=== PATIENT | male | born 1965 | race Caucasian/White ===

== ENCOUNTER 2017-06-19 13:20 | Inpatient (IN) | payer SELFPAY ==
[~2017-06-19] VITALS: Ht 182.9 cm; Wt 136.9 kg
[~2017-06-19 13:20] MED LIST: DLD2 PO; GLYB5TAB8 PO; INSUINJ7 SC; LEVO-366 PO; MULT-506 PO; NVLGI SC; PRLSR20 PO; THIA100T11 PO; [UNRECOGNIZED DRUG - CODE] PO
--- NOTE | 2017-06-19 13:49 | EMERGENCY ROOM VISIT NOTE ---
History First contact with patient: 13:28 Chief Complaint: ILLNESS Stated Complaint: DIABETES ISSUES, ILLNESS History of Present Illness The patient is a 51 year old male who presents to the Emergency Room with complaints of diabetes problems. The patient was a recovering alcoholic that started binging about a week ago. He lost track of the days and believes he wasn 't taking his insulin. The patient also notes the following associated symptoms , blurry vision, upset stomach, diarrhea, neuropathy numbness,and a cough with some blood tinged sputum. This started a few days ago and is improving. His sister found him yesterday and had him take his insulin. The patient has taken some ibuprofen as relieving factors. He lost his insurance and is buying lantus from a friend. His last continous stretch of primary care was two years ago. Pt denies headache, fevers, chills, diaphoresis, visual changes, neck pain, chest pain, breathing difficulties, nausea, vomiting, abdominal pain, back pain , melena, hematochezia, urinary symptoms, weakness, lymphadenopathy, rash, or other complaints. Review of Systems See HPI for pertinent positives and negatives. A total of ten systems were reviewed and were otherwise negative. Past Medical/Surgical History Medical Problems: (1) Diabetes (2) Diverticulitis Surgical Problems: (1) S/P colon resection Social History Problems: (1) Alcohol abuse Social History Smoking Status: Never Smoker Marital Status: single Current/Historical Medications Scheduled Insulin Aspart (Novolog Flexpen), 1 DOSE SC UD Insulin Glargine (Lantus Solostar), 25 UNITS SC BID Physical Exam Vital Signs Date Time Temp Pulse Resp B/P (MAP) Pulse Ox O2 Delivery O2 Flow Rate FiO2 06/19/17 14:53 110 20 198/116 98 Room Air 06/19/17 14:25 94 Room Air 06/19/17 14:22 109 06/19/17 13:24 36.4 126 22 190/133 94 Room Air Physical Exam GENERAL: Awake, alert, anxious-appearing, in no distress HENT: Normocephalic, atraumatic. Oropharynx unremarkable. EYES: Normal conjunctiva. Sclera non-icteric. NECK: Supple. No nuchal rigidity. FROM. No masses. RESPIRATORY: Clear to auscultation. No wheezes. No rales. Normal respiratory effort. CARDIAC: Tachycardic rate. Normal rhythm. No murmurs. No rubs. Extremities warm and well perfused. Pulses equal. No JVD. GI: Soft, non-distended. No tenderness to palpation. No rebound or guarding. No masses. RECTAL: Deferred. MUSCULOSKELETAL: Atraumatic. Chest examination reveals no tenderness. The back is symmetrical on inspection without obvious abnormality. There is no CVA tenderness to palpation. No joint edema. LOWER EXTREMITIES: Calves are equal size bilaterally and non-tender. Trace edema. No discoloration. NEURO: Normal sensorium. No sensory or motor deficits noted. SKIN: No rash or jaundice noted. Medical Decision & Procedures ER Provider Diagnostic Interpretation: SINGLE VIEW CHEST CLINICAL HISTORY: Cough. FINDINGS: An AP, portable, upright chest radiograph is compared to study dated 03/17/2010. The examination is degraded by portable technique and apical lordotic positioning. The cardiomediastinal silhouette is unremarkable. The lungs and pleural spaces are clear. No pneumothorax is seen. The bony thorax is grossly intact. IMPRESSION: No active disease in the chest. Electronically signed by: Bruno Mendoza M.D. 06/19/2017 2:46 PM Dictated Date/Time: 06/19/2017 2:45 PM The status of this report is Signed. Draft = Not yet reviewed or approved by Radiologist. Signed = Reviewed and approved by Radiologist. Laboratory Results 06/19/17 14:25 Red Blood Count 5.04, Mean Corpuscular Volume 87.9, Mean Corpuscular Hemoglobin 30.8, Mean Corpuscular Hemoglobin Concent 35.0, Mean Platelet Volume 10.0, Neutrophils (%) (Auto) 65.9, Lymphocytes (%) (Auto) 20.3, Monocytes (%) (Auto) 13.0, Eosinophils (%) (Auto) 0.4, Basophils (%) (Auto) 0.3, Neutrophils # (Auto ) 4.80, Lymphocytes # (Auto) 1.48, Monocytes # (Auto) 0.95, Eosinophils # (Auto ) 0.03, Basophils # (Auto) 0.02 06/19/17 14:25 Test 06/19/17 14:25 06/19/17 15:08 White Blood Count 7.29 K/uL (4.8-10.8) Red Blood Count 5.04 M/uL (4.7-6.1) Hemoglobin 15.5 g/dL (14.0-18.0) Hematocrit 44.3 % (42-52) Mean Corpuscular Volume 87.9 fL (80-100) Mean Corpuscular Hemoglobin 30.8 pg (25-34) Mean Corpuscular Hemoglobin Concent 35.0 g/dl (32-36) Platelet Count 190 K/uL (130-400) Mean Platelet Volume 10.0 fL (7.4-10.4) Neutrophils (%) (Auto) 65.9 % Lymphocytes (%) (Auto) 20.3 % Monocytes (%) (Auto) 13.0 % Eosinophils (%) (Auto) 0.4 % Basophils (%) (Auto) 0.3 % Neutrophils # (Auto) 4.80 K/uL (1.4-6.5) Lymphocytes # (Auto) 1.48 K/uL (1.2-3.4) Monocytes # (Auto) 0.95 K/uL (0.11-0.59) Eosinophils # (Auto) 0.03 K/uL (0-0.5) Basophils # (Auto) 0.02 K/uL (0-0.2) RDW Standard Deviation 43.4 fL (36.4-46.3) RDW Coefficient of Variation 13.5 % (11.5-14.5) Immature Granulocyte % (Auto) 0.1 % Immature Granulocyte # (Auto) 0.01 K/uL (0.00-0.02) Prothrombin Time 10.9 SECONDS (9.0-12.0) Prothromb Time International Ratio 1.0 (0.9-1.1) Activated Partial Thromboplast Time 24.5 SECONDS (21.0-31.0) Partial Thromboplastin Ratio 0.9 Anion Gap 6.0 mmol/L (3-11) Est Creatinine Clear Calc Drug Dose 128.4 ml/min Estimated GFR () 105.5 Estimated GFR (Non- 91.0 BUN/Creatinine Ratio 6.5 (10-20) Calcium Level 9.9 mg/dl (8.5-10.1) Magnesium Level 1.4 mg/dl (1.8-2.4) Total Bilirubin 1.4 mg/dl (0.2-1) Direct Bilirubin 0.3 mg/dl (0-0.2) Aspartate Amino Transf (AST/SGOT) 50 U/L (15-37) Alanine Aminotransferase (ALT/SGPT) 63 U/L (12-78) Alkaline Phosphatase 86 U/L (45-117) Total Creatine Kinase 579 U/L (39-308) Creatine Kinase MB 3.2 ng/ml (0.5-3.6) Creatine Kinase MB Ratio 0.6 (0-3.0) Troponin I < 0.015 ng/ml (0-0.045) Total Protein 8.9 gm/dl (6.4-8.2) Albumin 4.2 gm/dl (3.4-5.0) Lipase 150 U/L (73-393) Thyroid Stimulating Hormone (TSH) 2.480 uIu/ml (0.300-4.500) Urine Color DK YELLOW Urine Appearance CLEAR (CLEAR) Urine pH 6.5 (4.5-7.5) Urine Specific [place] 1.029 (1.000-1.030) Urine Protein 3+ (NEG) Urine Glucose (UA) 3+ (NEG) Urine Ketones 1+ (NEG) Urine Occult Blood 2+ (NEG) Urine Nitrite NEG (NEG) Urine Bilirubin 1+ (NEG) Urine Urobilinogen NEG (NEG) Urine Leukocyte Esterase NEG (NEG) Urine WBC (Auto) 1-5 /hpf (0-5) Urine RBC (Auto) 5-10 /hpf (0-4) Urine Hyaline Casts (Auto) 1-5 /lpf (0-5) Urine Epithelial Cells (Auto) 5-10 /lpf (0-5) Urine Bacteria (Auto) NEG (NEG) Medications Administered Medications (Trade) Dose Ordered Sig/Katerine Route Start Time Stop Time Status Last Admin Dose Admin Insulin Human Regular (novoLIN-R U-100 PER UNIT) 4 units NOW STAT IV 06/19/17 15:58 06/19/17 15:59 DC 06/19/17 16:51 4 UNITS Magnesium Sulfate (Magnesium Sulfate 1gm / D5W) 2 gm NOW STAT IV 06/19/17 15:58 06/19/17 15:59 DC 06/19/17 16:48 2 GM ECG Per My Interpretation Indication: altered mental status Rate (beats per minute): 111 Rhythm: sinus tachycardia Findings: PVC, no acute ischemic change Medical Decision Triage Nursing notes reviewed. The patient's presentation and history were concerning for alcohol abuse and medication non-compliance. Etiologies such as metabolic, infection, hypo/hyperglycemia, electrolyte abnormalities, cardiac sources, intracerebral event, toxicologic, neurologic, as well as others were entertained. The patient was evaluated. He was very concerned about cost as he does not have insurance. He has not been following with his primary care. He has been buying his insulin from a neighbor. He has not been monitoring his blood sugars. The patient notes significant alcohol consumption has a history of alcohol abuse. He and I used shared decision making to initiate a workup. He was found to be moderately hyperglycemic on his chemistry panel without signs of DKA. He was found to have significant hypomagnesemia and mild elevation of his LFTs. IV magnesium was administered. ECG showed a sinus tachycardia. The patient's chest x-ray was benign as above. He was treated with IV insulin. He does not have primary care. He has severe hypertension. Given the multiple abnormalities and history further management in the hospital was felt to be appropriate. I discussed this with the patient and his sister. They felt comfortable with this plan. A consultation was placed with Dr. Gonzalez of the [facility] hospitalist service. Patient was evaluated in the ER for further management. Impression Primary Impression: Hypomagnesemia Additional Impressions: Alcohol abuse Hyperglycemia Noncompliance with medications Departure Information Dispostion Being Evaluated By Hospitalist Referrals Ministerio Perez M.D.([facility]) (PCP) Patient Instructions My [facility] Problem Qualifiers
[2017-06-19] MEDS ORDERED: NVLGI/PEN SC (14:05)
[2017-06-19] MEDS ORDERED: INSDGIPEN SC (14:05)
[2017-06-19 14:39] LABS: BASO % 0.3 %; BASO ABS # 0.02 K/uL (0-0.2); EOS % 0.4 %; EOS ABS # 0.03 K/uL (0-0.5); HEMATOCRIT 44.3 % (42-52); HEMOGLOBIN 15.5 g/dL (14.0-18.0); IG# 0.01 K/uL (0.00-0.02); LYMPH % 20.3 %; LYMPH ABS # 1.48 K/uL (1.2-3.4); MEAN CELL VOLUME 87.9 fL (80-100); MEAN CORPUSCULAR HEMOGLOBIN 30.8 pg (25-34); MONO ABS # 0.95 K/uL (0.11-0.59); NEUT % 65.9 %; PLATELET COUNT 190 K/uL (130-400); RED CELL DISTRIBUTION WIDTH CV 13.5 % (11.5-14.5); RED CELL DISTRIBUTION WIDTH SD 43.4 fL (36.4-46.3); WHITE BLOOD COUNT 7.29 K/uL (4.8-10.8)
--- NOTE | 2017-06-19 14:47 | DIAGNOSTIC IMAGING REPORT ---
SINGLE VIEW CHEST CLINICAL HISTORY: Cough. FINDINGS: An AP, portable, upright chest radiograph is compared to study dated 03/17/2010. The examination is degraded by portable technique and apical lordotic positioning. The cardiomediastinal silhouette is unremarkable. The lungs and pleural spaces are clear. No pneumothorax is seen. The bony thorax is grossly intact. IMPRESSION: No active disease in the chest. Electronically signed by: Bruno Mendoza M.D. 06/19/2017 2:46 PM Dictated Date/Time: 06/19/2017 2:45 PM
[2017-06-19 14:56] LABS: ALBUMIN 4.2 gm/dl (3.4-5.0); ALT/SGPT 63 U/L (12-78); AST/SGOT 50 U/L (15-37); BLOOD UREA NITROGEN 6 mg/dl (7-18); CALCIUM 9.9 mg/dl (8.5-10.1); CARBON DIOXIDE 29 mmol/L (21-32); CREATININE 0.95 mg/dl (0.60-1.40); GLUCOSE 239 mg/dl (70-99); LIPASE 150 U/L (73-393); POTASSIUM 3.5 mmol/L (3.5-5.1); SODIUM 132 mmol/L (136-145)
[2017-06-19 14:57] LABS: PTT PATIENT 24.5 SECONDS (21.0-31.0)
[2017-06-19 15:05] LABS: ALKALINE PHOSPHATASE 86 U/L (45-117); CKMB 3.2 ng/ml (0.5-3.6); TOTAL PROTEIN 8.9 gm/dl (6.4-8.2)
[2017-06-19] MEDS ORDERED: MAGNESIUM SULFATE 1GM / D5W 1 GM BAG IV STA (15:58)
[2017-06-19] MEDS ORDERED: NovoLIN-R INSULIN PER UNIT CHARGE IV STA (15:58)
[2017-06-19] MEDS ORDERED: PHARMACY GLYCEMIC MGMT CONSULT STA (16:26)
[2017-06-19] MEDS ORDERED: PHARMACY GLYCEMIC MGMT CONSULT PRN (16:28)
[2017-06-19] MEDS ORDERED: POLYETHYLENE (MIRALAX) 17 GM PACK PO PRN (16:30)
[2017-06-19] MEDS ORDERED: ALUMINUM/MAGNESIUM/SIMETH (MAALOX MAX) 30 ML UDC PO PRN (16:30)
[2017-06-19] MEDS ORDERED: MAGNESIUM HYDROXIDE SUSP 30 ML UDC PO PRN (16:30)
[2017-06-19] MEDS ORDERED: CARBOHYDRATES FOR HYPOGLYCEMIA PO PRN (16:30)
[2017-06-19] MEDS ORDERED: ONDANSETRON INJ 2 MG/ML 2 ML VIAL IV PRN (16:30)
[2017-06-19] MEDS ORDERED: DEXTROSE 50% 50 ML SYR IV PRN (16:30)
[2017-06-19] MEDS ORDERED: GLUCOSE 40% GEL 15 GM TUBE PO PRN (16:30)
[2017-06-19] MEDS ORDERED: GLUCOSE 10 TABS/TUBE PO PRN (16:30)
[2017-06-19] MEDS ORDERED: GLUCAGON FOR INJ 1 MG VIAL SQ PRN (16:30)
[2017-06-19] MEDS ORDERED: ACETAMINOPHEN 325 MG TAB PO PRN (16:30)
[2017-06-19 16:33] VITALS: O2SAT 98; Ht 182.9 cm; Wt 136.9 kg
[2017-06-19] MEDS ORDERED: GABAPENTIN 600 MG TAB PO SCH (16:45)
[2017-06-19] MEDS ORDERED: LORAZEPAM 2 MG/ML 1 ML VIAL IV PRN (16:45)
[2017-06-19] MEDS ORDERED: LABETALOL HCL IV 5 MG/ML 20ML IV PRN ×2 (16:45→21:45)
[2017-06-19 18:01] VITALS: O2SAT 94
[2017-06-19 18:15] VITALS: BP 191/132; PULSE 118; TEMP 36.4; O2SAT 97
[2017-06-19] MEDS ORDERED: LISINOPRIL 5 MG TAB PO ONE ×2 (18:32→21:00)
[2017-06-19] MEDS: INSULIN ASPART 100 UNITS/ML 3 ML PEN SC SCH ×2 (18:38→20:11)
--- NOTE | 2017-06-19 18:44 | History and Physical ---
History & Physical Date & Time of Service: June 19, 2017 at 18:44 Chief Complaint: Alcohol Abuse, Diabetes Primary Care Physician: No Doctor, Assigned History of Present Illness Source: patient This is a 51-year-old male with past medical history of high blood pressure/ diabetes type 2 who has not seen any family physician for past 2 years after losing his medical insurance. Patient reports of buying insulin from a neighbor-takes Lantus 24 units every morning/does not check BSG as his blood sugar meter broke. Patient has been drinking heavily for the last 3-4 days/finished 3 bottles of vodka in 4 days Does not have any recollection of last week Stopped drinking alcohol since last Thursday/had tremors, sweating, headache yesterday Patient was brought to ER by his sister Found to be hypertensive with systolic blood pressure 190 Diastolic diastolic blood pressure 133 Sinus tachycardic at 120 BSG was elevated more than 300/with elevated beta hydroxybutyrate left/normal serum bicarb/normal anion gap Patient denies of any withdrawal seizure in the past Mentions that he used to drink heavily approximately 10 years back [facility] Has been sober for last 9-10 years Started drinking heavily since February this year after losing job Denies of any illicit drug use Patient is a non-smoker During discussion with patient, alert and awake and conversing appropriately Denies of any headache, no complaint of chest pain, shortness of breath, palpitation Tensions feeling much better since arrival to ER / after getting IV fluid Past Medical/Surgical History Medical Problems: (1) Diabetes (2) Diverticulitis Surgical Problems: (1) S/P colon resection Social History Smoking Status: Never Smoker Alcohol Use: Binge drinking vodka last -3-4 day Drug Use: other (Denies) Marital Status: single Housing status: lives alone Occupational Status: unemployed Immunizations History of Influenza Vaccine: No History of Tetanus Vaccine?: Unknown History of Pneumococcal: No History of Hepatitis B Vaccine: Unknown Multi-Drug Resistant Organisms History of MDRO: No Allergies Coded Allergies: Insulin (Verified Allergy, Intermediate, FLUSHING/N/V/SWOLLEN LIP WITH IVP REGULAR INSULIN, 03/12/10) 03/12/10 @ 0815: RN STOPPED IVP, WAITED 5 MINS, RETRIED IVP SLOWLY, SAME REACTION. NOTIFIED DR GRAVES, HE WILL ROUND ON PT LATER THIS MORNING. [place] (Verified Allergy, Unknown, _, 06/19/17) [place] (Verified Allergy, Unknown, _, 06/19/17) Home Medications Scheduled Insulin Aspart (Novolog Flexpen), 1 DOSE SC UD Insulin Glargine (Lantus Solostar), 25 UNITS SC BID Review of Systems Constitutional: + chills, + sweats, + weakness, + fatigue Respiratory: No cough, No sputum, No wheezing, No shortness of breath, No dyspnea on exertion, No dyspnea at rest, No hemoptysis, No problem reported Cardiovascular: No chest pain, No orthopnea, No PND, No edema, No claudication , No palpitations, No problem reported Abdomen: + nausea, + vomiting Musculoskeletal: + problem reported (Generalized weakness/muscle ache) Neurologic: + weakness, + numbness/tingling (Bilateral lower external), + vertigo, + balance problems Psychiatric: + substance abuse (Heavy alcohol abuse) Endocrine: + fatigue, + excessive thirst, + excessive urination Physical Exam Vital Signs Date Time Temp Pulse Resp B/P (MAP) Pulse Ox O2 Delivery O2 Flow Rate FiO2 06/19/17 18:01 36.4 118 22 182/108 94 06/19/17 16:54 118 22 182/108 94 Room Air 06/19/17 16:33 98 Room Air 06/19/17 14:53 110 20 198/116 98 Room Air 06/19/17 14:25 94 Room Air 06/19/17 14:22 109 06/19/17 13:24 36.4 126 22 190/133 94 Room Air General Appearance: no apparent distress Head: normocephalic, atraumatic Eyes: normal inspection, PERRL, EOMI, sclerae normal ENT: + pertinent finding (Moist oral mucous) Neck: thyroid normal, no JVD, no carotid bruits, trachea midline Respiratory/Chest: chest non-tender, lungs clear, normal breath sounds, no respiratory distress Cardiovascular: normal peripheral pulses, + tachycardia Abdomen/GI: normal bowel sounds, non tender, soft Extremities/Musculoskelatal: normal capillary refill, + pedal edema (Trace bilateral pedal edema) Neurologic/Psych: no motor/sensory deficits, alert, normal mood/affect, oriented x 3 Skin: normal color, warm/dry, no rash Lymphatic: no adenopathy Diagnostics Laboratory Results Results Past 24 Hours Test 06/19/17 14:25 06/19/17 15:08 06/19/17 16:16 06/19/17 16:32 Range/Units White Blood Count 7.29 4.8-10.8 K/uL Red Blood Count 5.04 4.7-6.1 M/uL Hemoglobin 15.5 14.0-18.0 g/dL Hematocrit 44.3 42-52 % Mean Corpuscular Volume 87.9 80-100 fL Mean Corpuscular Hemoglobin 30.8 25-34 pg Mean Corpuscular Hemoglobin Concent 35.0 32-36 g/dl Platelet Count 190 130-400 K/uL Mean Platelet Volume 10.0 7.4-10.4 fL Neutrophils (%) (Auto) 65.9 % Lymphocytes (%) (Auto) 20.3 % Monocytes (%) (Auto) 13.0 % Eosinophils (%) (Auto) 0.4 % Basophils (%) (Auto) 0.3 % Neutrophils # (Auto) 4.80 1.4-6.5 K/uL Lymphocytes # (Auto) 1.48 1.2-3.4 K/uL Monocytes # (Auto) 0.95 0.11-0.59 K/uL Eosinophils # (Auto) 0.03 0-0.5 K/uL Basophils # (Auto) 0.02 0-0.2 K/uL RDW Standard Deviation 43.4 36.4-46.3 fL RDW Coefficient of Variation 13.5 11.5-14.5 % Immature Granulocyte % (Auto) 0.1 % Immature Granulocyte # (Auto) 0.01 0.00-0.02 K/uL Prothrombin Time 10.9 9.0-12.0 SECONDS Prothromb Time International Ratio 1.0 0.9-1.1 Activated Partial Thromboplast Time 24.5 21.0-31.0 SECONDS Partial Thromboplastin Ratio 0.9 Sodium Level 132 136-145 mmol/L Potassium Level 3.5 3.5-5.1 mmol/L Chloride Level 97 98-107 mmol/L Carbon Dioxide Level 29 21-32 mmol/L Anion Gap 6.0 3-11 mmol/L Blood Urea Nitrogen 6 7-18 mg/dl Creatinine 0.95 0.60-1.40 mg/dl Est Creatinine Clear Calc Drug Dose 128.4 ml/min Estimated GFR () 105.5 Estimated GFR (Non- 91.0 BUN/Creatinine Ratio 6.5 10-20 Random Glucose 239 70-99 mg/dl Calcium Level 9.9 8.5-10.1 mg/dl Magnesium Level 1.4 1.8-2.4 mg/dl Total Bilirubin 1.4 0.2-1 mg/dl Direct Bilirubin 0.3 0-0.2 mg/dl Aspartate Amino Transf (AST/SGOT) 50 15-37 U/L Alanine Aminotransferase (ALT/SGPT) 63 12-78 U/L Alkaline Phosphatase 86 45-117 U/L Total Creatine Kinase 579 39-308 U/L Creatine Kinase MB 3.2 0.5-3.6 ng/ml Creatine Kinase MB Ratio 0.6 0-3.0 Troponin I < 0.015 0-0.045 ng/ml Total Protein 8.9 6.4-8.2 gm/dl Albumin 4.2 3.4-5.0 gm/dl Lipase 150 73-393 U/L Thyroid Stimulating Hormone (TSH) 2.480 0.300-4.500 uIu/ml Urine Color DK YELLOW Urine Appearance CLEAR CLEAR Urine pH 6.5 4.5-7.5 Urine Specific [place] 1.029 1.000-1.030 Urine Protein 3+ NEG Urine Glucose (UA) 3+ NEG Urine Ketones 1+ NEG Urine Occult Blood 2+ NEG Urine Nitrite NEG NEG Urine Bilirubin 1+ NEG Urine Urobilinogen NEG NEG Urine Leukocyte Esterase NEG NEG Urine WBC (Auto) 1-5 0-5 /hpf Urine RBC (Auto) 5-10 0-4 /hpf Urine Hyaline Casts (Auto) 1-5 0-5 /lpf Urine Epithelial Cells (Auto) 5-10 0-5 /lpf Urine Bacteria (Auto) NEG NEG Ethyl Alcohol mg/dL < 3.0 0-3 mg/dl Test 06/19/17 16:33 06/19/17 17:42 Range/Units Impression Assessment and Plan ETOH ABUSE/INTOXICATION: Prior history of alcohol abuse/been sober for last 10 years after alcohol rehab Presents after binge drinking for last 3-4 days/consumed approximately 3 bottles of vodka Denies of using any other street drugs Urine tox screen ordered Serum alcohol level undetectable Patient is approximately more than 48 hours beyond the last drink At present denies of any withdrawal syndrome -Had sweating/reactive restlessness/tremor at home -Denies of any prior history of withdrawal seizure -Patient remains in sinus tachycardia/with persistent hypertensive urgency -Will be monitored in telemetry-caution for severe alcohol withdrawal syndrome/ DT -Ordered for banana bag/Neurontin alcohol withdrawal protocol/IV Ativan as needed as per alcohol withdrawal protocol -Low threshold to transfer to ICU with any events of severe withdrawal symptoms and /or hemodynamic instability -Patient is counseled for alcohol abuse-explained risk of liver failure/stroke/ heart attack with combination of poorly controlled diabetes/hypertension/and alcohol abuse -Patient verbalized understanding; willing to quit -interested in outpatient alcohol -Social service consulted HYPERTENSIVE URGENCY History of high blood pressure, not on any antihypertensive medication/cannot afford it due to lack of insurance Has not seen any family physician for last 2 years Presents with blood pressure 190/130-possible combination alcohol withdrawal/ with underlying untreated high blood pressure No evidence of end organ Patient given 2.5 mg of IV Versed Started on lisinopril 5 mg p.o. daily Echo ordered to assess hypertensive cardiomyopathy SINUS TACHYCARDIA Possible secondary to alcohol withdrawal/with combination of dehydration- Continue with IV fluids As needed IV Ativan for withdrawal symptom Monitoring telemetry POORLY CONTROLLED TYPE 2 DIABETES/ELEVATED BLOOD SUGAR: Order for hemoglobin A1c Continue basal Lantus/insulin sliding scale Pharmacy for glycemic management in service educator consulted Dietary consult for counseling for diabetic diet LOW MAGNESIUM Possible secondary to alcohol abuse Corrected Follow lab ELEVATED BILIRUBIN/ABNORMAL TRANSAMINASE Possible acute alcoholic hepatitis Ordered for repeat lab denies of right upper quadrant pain/abdominal discomfort 2 episode of nausea vomiting-yesterday Right upper quadrant ultrasound in a.m. Denies of IV drug abuse Hep C screen negative Ordered for hepatitis panel CODE STATUS: Full code DVT for prophylaxis: Low risk SCD and teds Ambulate DISPOSITION: Patient does not have medical insurance Social service consulted-ROSELYN(medical assistant secretary) application will be filed/ assistance for alcohol rehab Does not have a family physician Patient is given information to [facility] with [facility] until medical assistant secretary is processed Level of Care Telemetry Advanced Directives Existing Living Will: No Existing Power of Tire Finisher: No Resuscitation Status FULL RESUSCITATION VTE Prophylaxis Risk Level: Moderate Given or contraindicated: Unfractionated heparin SQ
[2017-06-19] MEDS ORDERED: INSULIN GLARGINE SOLOSTAR 100 UNITS/ML 3 ML PEN SC ONE (18:45)
[2017-06-19] MEDS ORDERED: ENALAPRILAT IV 2.5 MG in DEXTROSE 5% 25ML 25 ML IV ONE ×2 (19:00→21:00)
[2017-06-19] MEDS ORDERED: HydrALAZINE HCL 20 MG/ML VIAL IV. PRN (19:00)
[2017-06-19] MEDS: SODIUM CHLORIDE 0.9% 1000ML 1,000 ML IV SCH (19:19)
[2017-06-19] MEDS: THIAMINE HCL 100 MG TAB PO SCH (19:57)
[2017-06-19] MEDS: METOPROLOL TARTRATE 25 MG TAB PO SCH ×2 (20:00→21:27)
[2017-06-19] MEDS ORDERED: MULTI-VITAMIN INFUSION INJ 10 ML, THIAMINE HCL INJ 100 MG, FoLIC ACID INJ 1 MG in SODIU... IV ONE (20:00)
[2017-06-19] MEDS ORDERED: GABAPENTIN 1200MG LOADING DOSE PO ONE (20:00)
[2017-06-19 20:17] VITALS: BP 114/62; PULSE 114
[2017-06-19] MEDS ORDERED: DiphenhydrAMINE HCL 50 MG/ML VIAL IV STA (20:21)
[2017-06-19] MEDS ORDERED: DiphenhydrAMINE HCL 50 MG/ML VIAL ONE (20:22)
[2017-06-19] MEDS ORDERED: DiphenhydrAMINE HCL 50 MG/ML VIAL IV PRN (20:30)
[2017-06-19] MEDS ORDERED: INSULIN GLARGINE SOLOSTAR 100 UNITS/ML 3 ML PEN SC SCH (21:00)
[2017-06-19 21:08] VITALS: BP 171/110; PULSE 114; TEMP 36.8; O2SAT 94
[2017-06-19 21:19] LABS: ALBUMIN 4.2 gm/dl (3.4-5.0); CALCIUM 9.9 mg/dl (8.5-10.1); CREATININE 1.04 mg/dl (0.60-1.40); POTASSIUM 3.3 mmol/L (3.5-5.1)
[2017-06-19 21:22] LABS: TOTAL PROTEIN 8.8 gm/dl (6.4-8.2)
[2017-06-19] MEDS ORDERED: POTASSIUM CHLORIDE 10 MEQ TABCR PO STA (21:28)
[2017-06-19] MEDS ORDERED: HEPARIN SOD 5000 UNIT/0.5 ML CARP SQ SCH (22:00)
[2017-06-19 23:12] VITALS: BP 167/96; PULSE 96; TEMP 36.5; O2SAT 96
[2017-06-20] MEDS: INSULIN ASPART 100 UNITS/ML 3 ML PEN SC SCH ×4 (00:21→12:06)
[2017-06-20] MEDS: SODIUM CHLORIDE 0.9% 1000ML 1,000 ML IV SCH (02:33)
[2017-06-20 04:24] VITALS: BP 189/96; PULSE 84; TEMP 36.5; O2SAT 95
[2017-06-20 06:05] VITALS: BP 161/92
[2017-06-20] MEDS: GABAPENTIN 600MG Q6H DOSE PO SCH ×2 (06:05→12:02)
[2017-06-20 06:15] VITALS: BP 136/82
[2017-06-20 06:28] LABS: HEMATOCRIT 41.5 % (42-52); HEMOGLOBIN 14.5 g/dL (14.0-18.0); MEAN CORPUSCULAR HEMOGLOBIN 31.5 pg (25-34); MEAN CORPUSCULAR HGB CONC 34.9 g/dl (32-36); MEAN PLATELET VOLUME 10.2 fL (7.4-10.4); PLATELET COUNT 168 K/uL (130-400); RED CELL DISTRIBUTION WIDTH CV 13.5 % (11.5-14.5); RED CELL DISTRIBUTION WIDTH SD 44.4 fL (36.4-46.3); WHITE BLOOD COUNT 6.23 K/uL (4.8-10.8)
[2017-06-20 06:48] VITALS: BP 155/95; PULSE 95; TEMP 36.5; O2SAT 95
[2017-06-20 07:03] LABS: ALBUMIN 3.3 gm/dl (3.4-5.0); CALCIUM 8.6 mg/dl (8.5-10.1); CREATININE 0.85 mg/dl (0.60-1.40); POTASSIUM 3.3 mmol/L (3.5-5.1)
[2017-06-20 07:06] LABS: PHOSPHORUS 3.7 mg/dl (2.5-4.9); TOTAL PROTEIN 7.4 gm/dl (6.4-8.2)
[2017-06-20 07:58] LABS: HEMOGLOBIN A1C 7.9 % (4.5-5.6)
[2017-06-20] MEDS ORDERED: LISINOPRIL 5 MG TAB PO SCH (08:00)
--- NOTE | 2017-06-20 08:02 | DIAGNOSTIC IMAGING REPORT ---
(LIVER) ABDOMEN LIMITED CLINICAL HISTORY: 51 years-old Male presenting with elevated AST /bilirubin . TECHNIQUE: Real-time grayscale and limited color Doppler ultrasound imaging of the abdomen limited to the right upper quadrant was performed. COMPARISON: CT and ultrasound from 2010. FINDINGS: Pancreas: Largely obscured due to overlying bowel gas. Liver: Markedly hyperechogenic parenchyma with obscuration of the right hemidiaphragm, likely indicating marked hepatic steatosis. The liver measures 21 cm in maximal sagittal dimension. No sonographic evidence of hepatic mass. Main portal vein patent with normal directional flow. Biliary: No intrahepatic biliary ductal dilatation. Common bile duct measures up to 5 mm in diameter. Gallbladder: Surgically absent. Right kidney: Normal in appearance without evidence of hydronephrosis. Ascites: None. Other: None. IMPRESSION: 1. Hepatic steatosis. Correlate with liver function tests to exclude steatohepatitis as a cause for abdominal pain. 2. Status post cholecystectomy. No biliary ductal dilatation. Electronically signed by: Amarjit Hutchins M.D. 06/20/2017 8:01 AM Dictated Date/Time: 06/20/2017 8:00 AM
[2017-06-20] MEDS: THIAMINE HCL 100 MG TAB PO SCH (08:27)
[2017-06-20] MEDS: METOPROLOL TARTRATE 25 MG TAB PO SCH (08:28)
[2017-06-20] MEDS ORDERED: POTASSIUM CHLORIDE 20 MEQ TABCR PO ONE (09:00)
[2017-06-20] MEDS ORDERED: INSULIN GLARGINE SOLOSTAR 100 UNITS/ML 3 ML PEN SC SCH (09:00)
[2017-06-20] MEDS: MAGNESIUM SULFATE 1GM / D5W 100 ML IV SCH ×3 (09:09→12:00)
[2017-06-20] MEDS ORDERED: NURSING VERBAL MED ORDER ONE (09:30)
--- NOTE | 2017-06-20 12:17 | ECHOCARDIOGRAM REPORT ---
*NOTICE TO RECEIVING [employer]Y This information is strictly Confidential and protected under [place] law. [place] law prohibits you from making any further disclosure of this information unless further disclosure is expressly permitted by the written consent of the person to whom it pertains or is authorized by law. A general authorization for the release of medical or other information is not sufficient for this purpose. Hospital accepts no responsibility if the information is made available to any other person, INCLUDING THE PATIENT. Interpretation Summary * Name: RYANN PHIPPS Study Date: 06/20/2017 08:53 AM BP: 189/96 mmHg * Patient Location: C.2T\S\S235\S\1 HR: 94 * : 1965 (M/d/yyyy) Gender: Male Height: 72 in * Age: 51 yrs Ethnicity: CA Weight: 300 lb * Ordering Physician: Casandra Gonzalez * Referring Physician: Self, Referred * Performed By: Ana Augustine RCS * * Reason For Study: ACCELARATED HTN * BSA: 2.5 m2 * -- Conclusions -- * The left ventricle is normal in size. * Left ventricular systolic function is normal. * No regional wall motion abnormalities noted. * Ejection Fraction = 50-55%. * There is no significant valvular disease Procedure Details * A complete two-dimensional transthoracic echocardiogram was performed (2D, M-mode, Doppler and color flow Doppler). Left Ventricle * The left ventricle is normal in size. * There is moderate concentric left ventricular hypertrophy. * Left ventricular systolic function is normal. * Ejection Fraction = 50-55%. * No regional wall motion abnormalities noted. Right Ventricle * The right ventricle is normal in size and function. Atria * The left atrial size is normal. * Right atrial size is normal. * No ASD detected; PFO is not assessed. Mitral Valve * The mitral valve anatomy is normal. * There is no mitral valve stenosis. * There is trace mitral regurgitation. Tricuspid Valve * The tricuspid valve is normal. * There is no tricuspid stenosis. * There is trace tricuspid regurgitation. Aortic Valve * The aortic valve is trileaflet. * No hemodynamically significant valvular aortic stenosis. * No aortic regurgitation is present. Pulmonic Valve * The pulmonic valve is not well visualized. * Trace pulmonic valvular regurgitation. Great Vessels * The aortic root is normal size. Pericardium/Pleural * There is no pericardial effusion. Great Vessels * Normal inferior vena cava diameter and respiratory variation suggests normal central venous pressure. Left Ventricular Diastolic Function * Grade I diastolic dysfunction, (abnormal relaxation pattern). MMode 2D Measurements and Calculations IVSd 1.9 cm IVSs 1.7 cm LVIDd 4.0 cm LVIDs 2.8 cm LVPWd 1.4 cm LVPWs 2.0 cm IVS/LVPW 1.3 FS 29.0 % EDV(Teich) 68.5 ml ESV(Teich) 29.9 ml EF(Teich) 56.4 % EDV(cubed) 62.3 ml ESV(cubed) 22.2 ml EF(cubed) 64.3 % % IVS thick -6.08 % % LVPW thick 39.8 % LV mass(C)d 264.3 grams LV mass(C)dI 104.4 grams/m\S\2 LV mass(C)s 214.4 grams LV mass(C)sI 84.7 grams/m\S\2 SV(Teich) 38.6 ml SI(Teich) 15.3 ml/m\S\2 SV(cubed) 40.0 ml SI(cubed) 15.8 ml/m\S\2 Ao root diam 3.4 cm Ao root area 9.3 cm\S\2 ACS 2.5 cm LA dimension 3.0 cm LA/Ao 0.88 LVOT diam 2.1 cm LVOT area 3.3 cm\S\2 LVAd ap4 46.5 cm\S\2 LVLd ap4 9.2 cm EDV(MOD-sp4) 188.9 ml EDV(sp4-el) 199.4 ml LVAs ap4 27.9 cm\S\2 LVLs ap4 7.2 cm ESV(MOD-sp4) 88.5 ml ESV(sp4-el) 91.4 ml EF(MOD-sp4) 53.1 % EF(sp4-el) 54.2 % LVAd ap2 46.0 cm\S\2 LVLd ap2 9.6 cm EDV(MOD-sp2) 182.9 ml EDV(sp2-el) 187.7 ml LVAs ap2 30.8 cm\S\2 LVLs ap2 7.8 cm ESV(MOD-sp2) 101.4 ml ESV(sp2-el) 103.4 ml EF(MOD-sp2) 44.6 % EF(sp2-el) 44.9 % LVLd %diff 4.1 % EDV(MOD-bp) 187.1 ml LVLs %diff 6.9 % ESV(MOD-bp) 94.9 ml EF(MOD-bp) 49.3 % SV(MOD-sp4) 100.4 ml SI(MOD-sp4) 39.7 ml/m\S\2 SV(MOD-sp2) 81.5 ml SI(MOD-sp2) 32.2 ml/m\S\2 SV(MOD-bp) 92.2 ml SI(MOD-bp) 36.4 ml/m\S\2 SV(sp4-el) 108.0 ml SI(sp4-el) 42.7 ml/m\S\2 SV(sp2-el) 84.3 ml SI(sp2-el) 33.3 ml/m\S\2 Doppler Measurements and Calculations MV E max martin 90.7 cm/sec MV A max martin 100.1 cm/sec MV E/A 0.91 MV P1/2t max martin 94.9 cm/sec MV P1/2t 80.0 msec MVA(P1/2t) 2.7 cm\S\2 MV dec slope 347.4 cm/sec\S\2 MV dec time 0.26 sec Ao V2 max 98.9 cm/sec Ao max PG 3.9 mmHg Ao max PG (full) 0.58 mmHg EMMANUEL(V,A) 3.1 cm\S\2 EMMANUEL(V,D) 3.1 cm\S\2 LV V1 max PG 3.3 mmHg LV V1 max 91.3 cm/sec PA V2 max 107.8 cm/sec PA max PG 4.7 mmHg PI max martin 156.2 cm/sec PI max PG 9.8 mmHg PI dec slope 289.9 cm/sec\S\2 PI P1/2t 157.8 msec
--- NOTE | 2017-06-20 13:36 | Discharge Instructions ---
Discharge Instructions Date of Service June 20, 2017. Admission Reason for Admission: Alcohol Abuse, Diabetes Discharge Discharge Diagnosis / Problem: Alcohol withdrawal, uncontrolled diabetes Discharge Goals Goal(s): Prevent Disease Progression Activity Recommendations Activity Limitations: per Instructions/Follow-up section . Instructions / Follow-Up Instructions / Follow-Up Please take all medications as instructed. Please look into [facility] as an interim sustainability project manager for your diabetes until you are reliably able to go back to a primary care physician. The phone number is and website is [email or web address]. They will be able to help you with diabetic referrals, and other needs like supplies as well as adjustment of your regimen. They will also be able to monitor your blood pressure closely and ensure it doesn't get too high where you may require medication. A good way to keep your blood pressure down is to limit your SODIUM or salt intake. Try to limit yourself to 3000mg per day as a goal. It was a pleasure taking care of you! Call if you have any questions or problems. You can reach a [facility] hospitalist on duty at [facility] 24 hours a day by calling [phone]. Take care of yourself. Whit Cabrera, [facility] Hospitalist Current Hospital Diet Patient's current hospital diet: Diabetes Type 2 Diet, AHA Diet (Heart Healthy) Discharge Diet Recommended Diet: AHA Diet (Heart Healthy), Diabetes Type 2 Diet Procedures Procedures Performed: TTE Pending Studies Studies pending at discharge: no Laboratory Results Hemoglobin A1c Test 06/19/17 14:25 Range/Units Estimated Average Glucose 180 mg/dl Hemoglobin A1c 7.9 H 4.5-5.6 % Medical Emergencies . Who to Call and When: Medical Emergencies: If at any time you feel your situation is an emergency, please call 911 immediately. . Non-Emergent Contact Non-Emergency issues call your: Primary Care Provider . . "Provider Documentation" section prepared by Whit Cabrera. .
--- NOTE | 2017-06-20 13:40 | Discharge Summary ---
Discharge Summary Date of Service June 20, 2017. Discharge Summary Admission Date: June 19, 2017 at 16:07 Discharge Date: June 20, 2017 Discharge Disposition: Home Principal Diagnosis: Alcohol withdrawal Elevated blood pressure 2/2 withdrawal Uncontrolled diabetes Procedures: TTE Vaccinations: None. Consultations: None. Pending Studies/Follow-Up: see instructions below. Medication Reconciliation Continued Medications: Insulin Aspart (Novolog Flexpen) 100 Units/Ml Inj 1 DOSE SC UD DOSING BASED ON SLIDING SCALE Insulin Glargine (Lantus Solostar) 100 Unit/Ml Inj 25 UNITS SC BID, PEN Admission Information HPI (per Admitting provider): This is a 51-year-old male with past medical history of high blood pressure/ diabetes type 2 who has not seen any family physician for past 2 years after losing his medical insurance. Patient reports of buying insulin from a neighbor-takes Lantus 24 units every morning/does not check BSG as his blood sugar meter broke. Patient has been drinking heavily for the last 3-4 days/finished 3 bottles of vodka in 4 days Does not have any recollection of last week Stopped drinking alcohol since last Thursday/had tremors, sweating, headache yesterday Patient was brought to ER by his sister Found to be hypertensive with systolic blood pressure 190 Diastolic diastolic blood pressure 133 Sinus tachycardic at 120 BSG was elevated more than 300/with elevated beta hydroxybutyrate left/normal serum bicarb/normal anion gap Patient denies of any withdrawal seizure in the past Mentions that he used to drink heavily approximately 10 years back Was [facility] Has been sober for last 9-10 years Started drinking heavily since February this year after losing job Denies of any illicit drug use Patient is a non-smoker During discussion with patient, alert and awake and conversing appropriately Denies of any headache, no complaint of chest pain, shortness of breath, palpitation Tensions feeling much better since arrival to ER / after getting IV fluid Physical Exam (per Admitting): General Appearance: no apparent distress Head: normocephalic, atraumatic Eyes: normal inspection, PERRL, EOMI, sclerae normal ENT: + pertinent finding (Moist oral mucous) Neck: thyroid normal, no JVD, no carotid bruits, trachea midline Respiratory/Chest: chest non-tender, lungs clear, normal breath sounds, no respiratory distress Cardiovascular: normal peripheral pulses, + tachycardia Abdomen/GI: normal bowel sounds, non tender, soft Extremities/Musculoskelatal: normal capillary refill, + pedal edema (Trace bilateral pedal edema) Neurologic/Psych: no motor/sensory deficits, alert, normal mood/affect, oriented x 3 Skin: normal color, warm/dry, no rash Lymphatic: no adenopathy Hospital Course 51-year-old uncontrolled diabetic who is also recovering alcoholic started binge drinking about a week ago secondary to life stressors. His last drink was on Saturday 06/17 and after about 48 hours of not drinking he began feeling shaky and anxious and presented to the ER. On arrival to the ER blood pressure was 190/133 with pulse of 126 in sinus rhythm and he was oxygenating well on room air. Physical exam revealed an awake alert and very anxious and that was in no acute distress. The lung and heart exam were normal except for tachycardia. Chest x-ray was normal revealing no active disease in the chest. Lab work revealed mildly elevated aminotransferases with an AST of 50 and an ALT of 63. Total creatinine kinase was 579 with a negative troponin and EKG revealing sinus tachycardia with no ischemic changes. Magnesium level was 1.4 and he was given IV replacement. Glucose was elevated in the mid 200s and he was started on insulin therapy. He had reported noncompliance with insulin therapy while drinking during the last week. He also reports that he gets insulin from his friend who is a diabetic as he has no medical insurance or money to buy medications. He also has not seen a physician in a couple of years and is not hooked into a primary care physician at this time. He was started on gabapentin withdrawal protocol and Ativan as needed was given multivitamins. He remained stable on telemetry with no events overnight and his heart rate came down as well as his blood pressure. On day of discharge he was mentating and ambulating at base line and tolerating p.o. he was discharged in stable condition with information to follow up with [facility] early next week. He was also given a glucometer with instructions on how to use it and was given the remainder of his insulin pen to use through the weekend as well as a drug coupon in a prescription for Lantus that would allow him a month and a half's worth of insulin for $10. Follow-up with primary care provider was encouraged to help titrate insulin therapy and optimize blood pressure. Of note an echocardiogram revealed no abnormalities including no evidence of long-standing hypertension, therefore, in this context a blood pressure medicine was not started as the patient will not be closely followed necessarily. Total time spent on discharge = 60 minutes This includes examination of the patient, discharge planning, medication reconciliation, and communication with other providers. Discharge Instructions [facility] [address] [place] [address] Discharge Medical Patient Name: Sotero Bangura Unit Number: [id number] Date of : 1965 Patient Status: Admitted Inpatient Attending Doctor: Whit Cabrera DO DI: Medical v5 Discharge Instructions Date of Service June 20, 2017. Admission Reason for Admission: Alcohol Abuse, Diabetes Discharge Discharge Diagnosis / Problem: Alcohol withdrawal, uncontrolled diabetes Discharge Goals Goal(s): Prevent Disease Progression Activity Recommendations Activity Limitations: per Instructions/Follow-up section . Instructions / Follow-Up Instructions / Follow-Up Please take all medications as instructed. Please look into [facility]) as an interim schedule planning manager for your diabetes until you are reliably able to go back to a primary care physician. The phone number is and website is [email or web address]. They will be able to help you with diabetic referrals, and other needs like supplies as well as adjustment of your regimen. They will also be able to monitor your blood pressure closely and ensure it doesn't get too high where you may require medication. A good way to keep your blood pressure down is to limit your SODIUM or salt intake. Try to limit yourself to 3000mg per day as a goal. It was a pleasure taking care of you! Call if you have any questions or problems. You can reach a [facility] hospitalist on duty at [facility] 24 hours a day by calling [phone]. Take care of yourself. Whit Cabrera DO [facility] Hospitalist Current Hospital Diet Patient's current hospital diet: Diabetes Type 2 Diet, AHA Diet (Heart Healthy) Discharge Diet Recommended Diet: AHA Diet (Heart Healthy), Diabetes Type 2 Diet Procedures Procedures Performed: TTE Pending Studies Studies pending at discharge: no Laboratory Results Hemoglobin A1c Test 06/19/17 14:25 Range/Units Estimated Average Glucose 180 mg/dl Hemoglobin A1c 7.9 H 4.5-5.6 % Medical Emergencies . Who to Call and When: Medical Emergencies: If at any time you feel your situation is an emergency, please call 911 immediately. . Non-Emergent Contact Non-Emergency issues call your: Primary Care Provider . . "Provider Documentation" section prepared by Whit Cabrera. .
[2017-06-20] MEDS ORDERED: INSDGIPEN SC (13:57)
[2017-06-20 14:00] VITALS: BP 155/95; PULSE 95; TEMP 36.5; O2SAT 95
[2017-06-20] MEDS ORDERED: GABAPENTIN 600MG Q8H DOSE PO SCH (22:00)
[2017-06-22] MEDS ORDERED: GABAPENTIN 600MG Q12H DOSE PO SCH
[2017-06-23] MEDS ORDERED: GABAPENTIN 600MG X1 DOSE PO SCH (21:00)
== END 2017-06-20 14:28 | disposition home or self-care (01) | DRG 638 ==
LOC: C.EDB 13:22 → C.4E 16:07 → ENRESERV 16:43 → C.2T 21:00
PROVIDERS: ADMIT Hospitalist; ATTEND Hospitalist
DX: E11.65 Type 2 diabetes mellitus with hyperglycemia (principal); F10.230 Alcohol dependence with withdrawal, uncomplicated; E83.42 Hypomagnesemia; Z79.4 Long term (current) use of insulin; Z91.14 Patient's other noncompliance with medication regimen; I16.0 Hypertensive urgency; R00.0 Tachycardia, unspecified